=== PATIENT | male | born 1965 | race Two or more races ===

== ENCOUNTER → 2018-05-07 | Day surgery (SDC) | payer MEDICAID ==
[2018-05-04 14:17] LABS: Basophils # (auto) 0 uL; Basophils % (auto) 0.4 % (0.0-2.0); Eosinophils # (auto) 0.1 uL; Eosinophils % (auto) 1.7 % (0.0-7.0); Hematocrit 44.8 % (41.0-53.0); Hemoglobin 15.1 g/dL (13.5-17.5); Lymphocytes # (auto) 1.8 uL; Lymphocytes % (auto) 31.9 % (10.0-50.0); Mean Corpuscular Hemoglobin 30.5 pg (28.0-32.0); Mean Corpuscular Hgb Conc. 33.6 g/dL (32.0-36.0); Mean Corpuscular Volume 90.7 fL (80.0-100.0); Monocytes # (auto) 0.7 uL; Monocytes % (auto) 11.7 % (0.0-12.0); Neutrophils % (auto) 54.3 % (37.0-80.0); Nucleated Red Blood Cells % 0.1 %; Platelet Count (auto) 185 10^3/uL (140-450); Red Blood Cells 4.94 10^6/uL (4.5-5.90); Red Cell Distribution Width 13.4 % (11.8-14.3); White Blood Cell 5.6 10^3/uL (4.4-10.8)
[2018-05-04 14:30] LABS: INR 0.94 (0.9-1.15); Partial Thromboplastin Time 27.7 sec (23.78-33.04); Prothrombin Time 10.1 sec (9.27-12.13)
[2018-05-04 15:56] LABS: Urine Bacteria NONE SEEN /hpf (None Seen); Urine Blood Negative /uL (Negative); Urine Mucus FEW (None Seen); Urine Specific Gravity 1.023 (1.001-1.035); Urine WBC <1 /hpf (0 - 3)
[~2018-05-07] VITALS: Ht 165.1 cm; Wt 81.6 kg
[~2018-05-07] MED LIST: LIDOCAINE VISCOUS 2% 15ML UD ONE; OMEP20TA PO; SODIUM CHLORIDE LOCK 10 ML ONE; diphenhdrAMINE 50mg/ml (500mg/10ml VIAL) ONE
[2018-05-07] MEDS: MIDAZOLAM HCL 5 MG/ML-1ML VIAL ONE ×2 (10:14→10:18)
[2018-05-07] MEDS: fentaNYL CITRATE 100 MCG/2 ML VL ONE ×2 (10:14→10:18)
[2018-05-07 11:11] VITALS: BP 114/89
== END | disposition home or self-care (01) ==
LOC: GI 08:46
PROVIDERS: ATTEND Internal Medicine Gastroenterology
DX: K64.8 Other hemorrhoids (principal); K29.50 Unspecified chronic gastritis without bleeding; Z98.890 Other specified postprocedural states
CPT/HCPCS: 43239; 45378; 99152; J3010; J7030; 36415; 81001; 85025; 85610; 85730; A6257; J1200; J2250

== ENCOUNTER 2018-10-10 13:14 | Emergency (ER) | payer MEDICAID ==
[~2018-10-10] VITALS: Ht 167.6 cm; Wt 83.0 kg
[~2018-10-10 13:14] MED LIST changes: -LIDOCAINE VISCOUS 2% 15ML UD ONE; -SODIUM CHLORIDE LOCK 10 ML ONE; -diphenhdrAMINE 50mg/ml (500mg/10ml VIAL) ONE
[2018-10-10] MEDS ORDERED: SODIUM CHLORIDE 0.9% 1,000 ML IVB ONE (14:04)
[2018-10-10] MEDS ORDERED: MORPHINE SULFATE 4 MG/ML SYR/VIAL IV ONE (14:15)
[2018-10-10] MEDS ORDERED: ONDANSETRON HCL 4 MG/2 ML VIAL IV ONE (14:15)
[2018-10-10 14:27] LABS: Urine Bacteria NONE SEEN /hpf (None Seen); Urine Blood Negative /uL (Negative); Urine Mucus FEW (None Seen); Urine Specific Gravity 1.019 (1.001-1.035); Urine WBC 1 /hpf (0 - 3)
[2018-10-10 14:30] LABS: Basophils # (auto) 0.1 uL; Basophils % (auto) 0.9 % (0.0-2.0); Eosinophils # (auto) 0.1 uL; Hematocrit 45.5 % (41.0-53.0); Hemoglobin 15.2 g/dL (13.5-17.5); Lymphocytes # (auto) 1.4 uL; Mean Corpuscular Hgb Conc. 33.4 g/dL (32.0-36.0); Mean Corpuscular Volume 89.7 fL (80.0-100.0); Monocytes # (auto) 0.4 uL; Monocytes % (auto) 6.8 % (0.0-12.0); Neutrophils # (auto) 3.5 uL; Neutrophils % (auto) 65.3 % (37.0-80.0); Nucleated Red Blood Cells % 0.1 %; Platelet Count (auto) 184 10^3/uL (140-450); Red Blood Cells 5.07 10^6/uL (4.5-5.90); Red Cell Distribution Width 13.7 % (11.8-14.3); White Blood Cell 5.4 10^3/uL (4.4-10.8)
[2018-10-10 15:13] LABS: Albumin 4.1 g/dL (3.4-5.0); Anion Gap 8 (5-15); Blood Urea Nitrogen 10 mg/dL (7-18); Calcium 8.7 mg/dL (8.5-10.1); Carbon Dioxide 26 mmol/L (21-32); Chloride 106 mmol/L (98-107); Glucose 125 mg/dL (74-106); Magnesium 2.4 mg/dL (1.6-2.6); Potassium 3.5 mmol/L (3.5-5.1); Sodium 140 mmol/L (136-145)
[2018-10-10 15:19] LABS: Alanine Aminotransferase 33 U/L (16-61); Alkaline Phosphatase 74 U/L (45-117); Aspartate Aminotransferase 18 U/L (15-37); Bilirubin, Total 0.4 mg/dL (0.2-1.0); GFR African American 111 mL/min; GFR Non-African American 92 mL/min; Total Protein 7.6 g/dL (6.4-8.2)
[2018-10-10 15:46] VITALS: BP 124/61
== END 2018-10-10 15:45 | disposition home or self-care (01) ==
LOC: ER 13:19
DX: R10.31 Right lower quadrant pain (principal); R10.32 Left lower quadrant pain; R61 Generalized hyperhidrosis; Z79.899 Other long term (current) drug therapy
CPT/HCPCS: 36415; 74176; 80053; 81001; 83690; 83735; 84484; 85025; 93005; 94761; 96374; 96375; 99284; J2270; J2405; J7030